=== PATIENT | male | born 1960 | race American Indian/Alaskan Native ===

== ENCOUNTER 2020-04-17 09:11 | Outpatient (CLI) | payer OTHER ==
--- NOTE | 2020-04-17 10:58 | XRay Report ---
LUMBAR SPINE 3 VIEWS INDICATION / CLINICAL INFORMATION: BACK PAIN. COMPARISON: None available. FINDINGS: VERTEBRAE: No fracture. No significant malalignment. 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 FACET JOINTS:Moderate facet degenerative disease L4-S1. ADDITIONAL FINDINGS: None. IMPRESSION: 1. No significant abnormality. Signer Name: Joaquin Lo MD Signed: 04/17/2020 10:53 AM Workstation Name: [id number]
== END 2020-04-17 09:12 | disposition home or self-care (01) ==
LOC: XRAY 09:11
PROVIDERS: ATTEND Internal Medicine
DX: M47.817 Spondylosis without myelopathy or radiculopathy, lumbosacral region (principal); M51.36 Other intervertebral disc degeneration, lumbar region; M19.031 Primary osteoarthritis, right wrist; M17.12 Unilateral primary osteoarthritis, left knee; M17.11 Unilateral primary osteoarthritis, right knee; F43.12 Post-traumatic stress disorder, chronic; M75.101 Unspecified rotator cuff tear or rupture of right shoulder, not specified as traumatic; M75.102 Unspecified rotator cuff tear or rupture of left shoulder, not specified as traumatic; M72.2 Plantar fascial fibromatosis; M51.35 Other intervertebral disc degeneration, thoracolumbar region
CPT/HCPCS: 72100